=== PATIENT | female | born 1965 | race Asian ===

== ENCOUNTER → 2017-12-19 | Outpatient (CLI) | payer MEDICAID ==
[2017-05-09 00:24] VITALS: BP 140/91
[~2017-12-19] MED LIST: CIPRO500 M1 PO; FLOMAX0.4 MG PO; MULTIVITAMIN1 SGL PO; PERCOCET 325 MG1 TA2 PO; PREDNISONE10 MG PO; TOPCARE IBUPRO200 MG PO; TUMERIC
[2017-12-19 16:40] LABS: HEMATOCRIT 46.4 % (37.0-47.0); HEMOGLOBIN 15.6 g/dL (12.5-16.0); MEAN PLATELET VOLUME 11.4 fl (7.4-10.4); RED BLOOD COUNT 5.35 M/mm3 (4.10-5.30); RED CELL DISTRIBUTION WIDTH 13.5 % (11.5-14.5); WHITE BLOOD COUNT 6.9 K/mm3 (4.8-10.8)
[2017-12-19 17:10] LABS: ALBUMIN 3.9 g/dL (3.5-5.0); BUN/CREATININE RATIO 23.4 (6.0-26.0); CALCIUM 9.2 mg/dL (8.4-10.2); TOTAL BILIRUBIN 0.7 mg/dL (0.2-1.3); TOTAL PROTEIN 7.6 g/dL (6.3-8.2)
== END ==
LOC: LAB 15:27
PROVIDERS: Family Medicine
DX: Z00.00 Encounter for general adult medical examination without abnormal findings (principal); E66.01 Morbid (severe) obesity due to excess calories; R79.89 Other specified abnormal findings of blood chemistry

== ENCOUNTER → 2018-01-20 | Outpatient (CLI) | payer MEDICAID ==
[2017-05-09 00:24] VITALS: BP 140/91
== END ==
LOC: LAB 12:02
DX: R53.83 Other fatigue (principal)

== ENCOUNTER → 2018-06-08 | Outpatient (CLI) | payer MEDICARE, MEDICAID ==
[2017-05-09 00:24] VITALS: BP 140/91
== END ==
LOC: LAB 12:35
DX: N30.00 Acute cystitis without hematuria (principal)

== ENCOUNTER 2018-07-12 13:57 | Emergency (ER) | payer MEDICARE, MEDICAID ==
[~2018-07-12] VITALS: Ht 154.9 cm; Wt 113.6 kg
[2018-07-12 14:01] VITALS: BP 129/79
[2018-07-12] MEDS ORDERED: FEXOFENADINE H180 M1 PO (14:04)
[2018-07-12] MEDS ORDERED: LEVEMIR FLEX100 U/ML SQ (14:05)
[2018-07-12 14:30] LABS: EOS # 0.2 (0.04-0.40); EOS % 2.6 % (1.0-5.0); HEMATOCRIT 45.9 % (37.0-47.0); HEMOGLOBIN 15.5 g/dL (12.5-16.0); LYMPH# 2.1 (1.50-4.00); MEAN CELL VOLUME 88 fl (78-100); MEAN CORPUSCULAR HEMOGLOBIN 30 pg (27-31); MEAN CORPUSCULAR HGB CONC 34 g/dL (33-37); MEAN PLATELET VOLUME 10.6 fl (7.4-10.4); MONO # 0.6 (0.20-0.80); NEU # 4.4 (1.40-6.50); PLATELET COUNT 197 K/mm3 (130-400); RED BLOOD COUNT 5.21 M/mm3 (4.10-5.30); RED CELL DISTRIBUTION WIDTH 13.3 % (11.5-14.5); WHITE BLOOD COUNT 7.4 K/mm3 (4.8-10.8)
[2018-07-12 14:53] LABS: URINE COLOR YELLOW
[2018-07-12 14:54] LABS: PH-URINE 6.5 (5.0 - 8.0); URINE APPEARANCE HAZY; URINE BILIRUBIN NEGATIVE (NEGATIVE); URINE BLOOD TRACE (NEGATIVE); URINE GLUCOSE NEGATIVE (NEGATIVE); URINE KETONE NEGATIVE (NEGATIVE); URINE LEUKOCYTE ESTERASE TRACE (NEGATIVE); URINE NITRATE NEGATIVE (NEGATIVE); URINE PROTEIN(semi-quant) TRACE mg/dL (NEGATIVE); URINE UROBILINOGEN NORMAL (NORMAL)
[2018-07-12] MEDS ORDERED: MACROBID 100 M100 MG PO (15:02)
[2018-07-12] MEDS ORDERED: PYRIDIUM100 M1 PO (15:03)
== END 2018-07-12 15:30 | disposition home or self-care (01) ==
LOC: ED 13:57
PROVIDERS: Family Medicine
DX: N39.0 Urinary tract infection, site not specified (principal); E11.9 Type 2 diabetes mellitus without complications; Z79.4 Long term (current) use of insulin; Z87.442 Personal history of urinary calculi; Z86.61 Personal history of infections of the central nervous system
CPT/HCPCS: J0696

== ENCOUNTER → 2018-08-07 | Outpatient (CLI) | payer MEDICARE, MEDICAID ==
[2018-07-12 14:01] VITALS: BP 129/79
[~2018-08-07] MED LIST changes: +FEXOFENADINE H180 M1 PO; +LEVEMIR FLEX100 U/ML SQ; +MACROBID 100 M100 MG PO; +PYRIDIUM100 M1 PO
== END ==
LOC: RAD 09:52
DX: R52 Pain, unspecified (principal)

== ENCOUNTER → 2018-12-23 | Outpatient (CLI) | payer MEDICARE, MEDICAID ==
[2018-12-23 14:32] LABS: EOS # 0.2 (0.04-0.40); EOS % 3.1 % (1.0-5.0); HEMATOCRIT 46.8 % (37.0-47.0); HEMOGLOBIN 15.5 g/dL (12.5-16.0); LYMPH# 2.2 (1.50-4.00); MEAN CELL VOLUME 89 fl (78-100); MEAN CORPUSCULAR HEMOGLOBIN 29 pg (27-31); MEAN CORPUSCULAR HGB CONC 33 g/dL (33-37); MEAN PLATELET VOLUME 10.7 fl (7.4-10.4); MONO # 0.5 (0.20-0.80); NEU # 3.1 (1.40-6.50); PLATELET COUNT 191 K/mm3 (130-400); RED BLOOD COUNT 5.29 M/mm3 (4.10-5.30); RED CELL DISTRIBUTION WIDTH 13.9 % (11.5-14.5); WHITE BLOOD COUNT 6.1 K/mm3 (4.8-10.8)
[2018-12-23 15:15] LABS: ALBUMIN 3.9 g/dL (3.5-5.0); CALCIUM 9.7 mg/dL (8.4-10.2); POTASSIUM 4.1 mmol/L (3.5-5.1); TOTAL BILIRUBIN 0.9 mg/dL (0.2-1.2); TOTAL PROTEIN 7.5 g/dL (6.4-8.3)
== END ==
LOC: LAB 14:15
PROVIDERS: Family Medicine
DX: Z01.419 Encounter for gynecological examination (general) (routine) without abnormal findings (principal); E66.01 Morbid (severe) obesity due to excess calories; E11.9 Type 2 diabetes mellitus without complications; E53.9 Vitamin B deficiency, unspecified; E55.9 Vitamin D deficiency, unspecified

== ENCOUNTER 2019-01-11 14:34 | Emergency (ER) | payer MEDICARE, MEDICAID ==
[~2019-01-11] VITALS: Ht 154.9 cm; Wt 96.4 kg
[2019-01-11 15:05] LABS: EOS # 0.2 (0.04-0.40); EOS % 3.2 % (1.0-5.0); HEMATOCRIT 46.4 % (37.0-47.0); HEMOGLOBIN 15.3 g/dL (12.5-16.0); LYMPH# 2.4 (1.50-4.00); MEAN CELL VOLUME 89 fl (78-100); MEAN CORPUSCULAR HEMOGLOBIN 29 pg (27-31); MEAN CORPUSCULAR HGB CONC 33 g/dL (33-37); MEAN PLATELET VOLUME 10.8 fl (7.4-10.4); MONO # 0.5 (0.20-0.80); NEU # 3.6 (1.40-6.50); PLATELET COUNT 191 K/mm3 (130-400); RED BLOOD COUNT 5.21 M/mm3 (4.10-5.30); RED CELL DISTRIBUTION WIDTH 14.1 % (11.5-14.5); WHITE BLOOD COUNT 6.7 K/mm3 (4.8-10.8)
[2019-01-11 15:32] LABS: ALBUMIN 3.8 g/dL (3.5-5.0); CALCIUM 9.4 mg/dL (8.4-10.2); POTASSIUM 4.4 mmol/L (3.5-5.1); TOTAL BILIRUBIN 0.8 mg/dL (0.2-1.2); TOTAL PROTEIN 6.8 g/dL (6.4-8.3)
[2019-01-11 15:49] LABS: URINE COLOR YELLOW
[2019-01-11 15:50] LABS: PH-URINE 5.5 (5.0 - 8.0); URINE APPEARANCE CLOUDY; URINE BILIRUBIN NEGATIVE (NEGATIVE); URINE BLOOD 50 ery/uL (NEGATIVE); URINE GLUCOSE NEGATIVE (NEGATIVE); URINE KETONE NEGATIVE (NEGATIVE); URINE LEUKOCYTE ESTERASE 1+ (NEGATIVE); URINE MUCUS PRESENT (NOT PRESENT); URINE NITRATE NEGATIVE (NEGATIVE); URINE PROTEIN(semi-quant) TRACE mg/dL (NEGATIVE); URINE UROBILINOGEN NORMAL (NORMAL); URINE WBC >50 /hpf (0-3)
[2019-01-11] MEDS ORDERED: BACTRIM DS TAB1 EACH PO (16:08)
[2019-01-11 16:22] VITALS: BP 120/69
== END 2019-01-11 16:28 | disposition home or self-care (01) ==
LOC: ED 14:34
PROVIDERS: Nurse Practitioner
DX: S20.211A Contusion of right front wall of thorax, initial encounter (principal); N39.0 Urinary tract infection, site not specified; F17.210 Nicotine dependence, cigarettes, uncomplicated; Z86.61 Personal history of infections of the central nervous system; Z86.19 Personal history of other infectious and parasitic diseases; Z98.84 Bariatric surgery status; Z98.890 Other specified postprocedural states

== ENCOUNTER → 2019-01-20 | Outpatient (CLI) | payer MEDICARE, MEDICAID ==
[2019-01-11 16:22] VITALS: BP 120/69
[~2019-01-20] MED LIST changes: +BACTRIM DS TAB1 EACH PO
[2019-01-20 11:03] LABS: URINE APPEARANCE HAZY; URINE BILIRUBIN NEGATIVE (NEGATIVE); URINE BLOOD NEGATIVE (NEGATIVE); URINE COLOR YELLOW; URINE GLUCOSE NEGATIVE (NEGATIVE); URINE KETONE NEGATIVE (NEGATIVE); URINE LEUKOCYTE ESTERASE TRACE (NEGATIVE); URINE MUCUS PRESENT (NOT PRESENT); URINE NITRATE NEGATIVE (NEGATIVE); URINE PROTEIN(semi-quant) NEGATIVE (NEGATIVE); URINE UROBILINOGEN 1 mg/dL (NORMAL)
== END ==
LOC: RAD 09:00
PROVIDERS: Family Medicine
DX: M51.34 Other intervertebral disc degeneration, thoracic region (principal); N39.0 Urinary tract infection, site not specified; J30.1 Allergic rhinitis due to pollen; M79.7 Fibromyalgia; E11.9 Type 2 diabetes mellitus without complications; E66.01 Morbid (severe) obesity due to excess calories; M19.90 Unspecified osteoarthritis, unspecified site; R07.81 Pleurodynia; R79.89 Other specified abnormal findings of blood chemistry

== ENCOUNTER 2019-03-25 15:30 | Outpatient (RCR) | payer MEDICARE, MEDICAID | END 2019-03-25 16:00 | disposition still patient (30) | LOC: PT 15:30 | DX: M19.90 Unspecified osteoarthritis, unspecified site (principal) ==

== ENCOUNTER → 2019-10-12 | Outpatient (CLI) | payer MEDICARE, MEDICAID ==
[2019-10-12 14:19] LABS: EOS # 0.2 (0.04-0.40); EOS % 3.9 % (1.0-5.0); HEMATOCRIT 45.7 % (37.0-47.0); LYMPH# 2.6 (1.50-4.00); MEAN CELL VOLUME 88 fl (78-100); MEAN CORPUSCULAR HEMOGLOBIN 29 pg (27-31); MEAN CORPUSCULAR HGB CONC 33 g/dL (33-37); MEAN PLATELET VOLUME 10.4 fl (7.4-10.4); MONO # 0.5 (0.20-0.80); NEU # 2.9 (1.40-6.50); PLATELET COUNT 211 K/mm3 (130-400); RED BLOOD COUNT 5.19 M/mm3 (4.10-5.30); RED CELL DISTRIBUTION WIDTH 13.9 % (11.5-14.5); WHITE BLOOD COUNT 6.2 K/mm3 (4.8-10.8)
[2019-10-12 14:23] LABS: ALBUMIN 4.1 g/dL (3.5-5.0); POTASSIUM 4.5 mmol/L (3.5-5.1)
[2019-10-12 14:24] LABS: CALCIUM 9.5 mg/dL (8.3-10.5)
[2019-10-12 14:25] LABS: TOTAL PROTEIN 7.4 g/dL (6.4-8.3)
[2019-10-12 14:27] LABS: TOTAL BILIRUBIN 0.5 mg/dL (0.2-1.2)
== END ==
LOC: LAB 13:53
PROVIDERS: Family Medicine
DX: E11.9 Type 2 diabetes mellitus without complications (principal)

== ENCOUNTER 2019-11-01 08:30 | Outpatient (RCR) | payer MEDICARE, MEDICAID | END 2020-01-17 | disposition still patient (30) | LOC: PT | DX: R42 Dizziness and giddiness (principal) ==

== ENCOUNTER → 2020-10-17 | Outpatient (CLI) | payer MEDICARE, MEDICAID ==
[2020-10-17 11:14] LABS: HEMATOCRIT 48.6 % (37.0-47.0); HEMOGLOBIN 15.9 g/dL (12.5-16.0); MEAN CELL VOLUME 89 fl (78-100); MEAN CORPUSCULAR HEMOGLOBIN 29 pg (27-31); MEAN CORPUSCULAR HGB CONC 33 g/dL (33-37); MEAN PLATELET VOLUME 10.3 fl (7.4-10.4); PLATELET COUNT 183 K/mm3 (130-400); RED BLOOD COUNT 5.47 M/mm3 (4.10-5.30); RED CELL DISTRIBUTION WIDTH 13.4 % (11.5-14.5); WHITE BLOOD COUNT 5.4 K/mm3 (4.8-10.8)
[2020-10-17 11:15] LABS: EOS # 0.2 (0.04-0.40); MONO # 0.4 (0.20-0.80); NEU # 2.7 (1.40-6.50)
[2020-10-17 11:16] LABS: CALCIUM 9.1 mg/dL (8.3-10.5)
[2020-10-17 11:18] LABS: TOTAL PROTEIN 7.4 g/dL (6.4-8.3)
== END ==
LOC: LAB 10:47
PROVIDERS: Family Medicine
DX: Z00.00 Encounter for general adult medical examination without abnormal findings (principal); E11.9 Type 2 diabetes mellitus without complications; E78.5 Hyperlipidemia, unspecified

== ENCOUNTER 2020-10-25 10:04 | Outpatient (RCR) | payer MEDICARE, MEDICAID | END 2020-10-25 17:00 | disposition home or self-care (01) | LOC: PT 10:04 | DX: H81.10 Benign paroxysmal vertigo, unspecified ear (principal) ==

== ENCOUNTER → 2020-11-22 | Outpatient (CLI) | payer MEDICARE, MEDICAID | LOC: RAD 15:23 | DX: R07.81 Pleurodynia (principal) ==

== ENCOUNTER → 2020-12-26 | Outpatient (CLI) | payer MEDICARE, MEDICAID | LOC: RAD 16:03 | DX: M47.816 Spondylosis without myelopathy or radiculopathy, lumbar region (principal); M41.86 Other forms of scoliosis, lumbar region ==

== ENCOUNTER → 2021-10-10 | Outpatient (CLI) | payer MEDICARE, MEDICAID ==
[2021-10-10 15:11] LABS: BASO # 0.02 K/mm3 (0.02-0.10); EOS % 3.5 % (1.0-5.0); HEMATOCRIT 46.1 % (37.0-47.0); HEMOGLOBIN 15.4 g/dL (12.5-16.0); LYMPH# 2.19 K/mm3 (1.50-4.00); MEAN CELL VOLUME 89 fl (78-100); MEAN CORPUSCULAR HEMOGLOBIN 30 pg (27-31); MEAN CORPUSCULAR HGB CONC 33 g/dL (33-37); MEAN PLATELET VOLUME 10.4 fl (7.4-10.4); NEU # 2.77 K/mm3 (1.40-6.50); PLATELET COUNT 218 K/mm3 (130-400); RED BLOOD COUNT 5.21 M/mm3 (4.10-5.30); RED CELL DISTRIBUTION WIDTH 13.3 % (11.5-14.5); WHITE BLOOD COUNT 5.7 K/mm3 (4.8-10.8)
[2021-10-10 15:17] LABS: POTASSIUM 4.3 mmol/L (3.5-5.1)
[2021-10-10 15:18] LABS: ALBUMIN 4.1 g/dL (3.5-5.0)
[2021-10-10 15:19] LABS: CALCIUM 9.6 mg/dL (8.3-10.5)
[2021-10-10 15:20] LABS: TOTAL PROTEIN 7.8 g/dL (6.4-8.3)
[2021-10-10 15:22] LABS: TOTAL BILIRUBIN 0.7 mg/dL (0.2-1.2)
== END ==
LOC: LAB 13:54
PROVIDERS: Family Medicine
DX: Z00.00 Encounter for general adult medical examination without abnormal findings (principal); J30.1 Allergic rhinitis due to pollen; E11.9 Type 2 diabetes mellitus without complications; E78.5 Hyperlipidemia, unspecified; M79.7 Fibromyalgia; E66.01 Morbid (severe) obesity due to excess calories; M19.90 Unspecified osteoarthritis, unspecified site; M06.89 Other specified rheumatoid arthritis, multiple sites; E55.9 Vitamin D deficiency, unspecified; M79.671 Pain in right foot; M25.551 Pain in right hip

== ENCOUNTER → 2022-03-19 | Outpatient (CLI) | payer MEDICARE, MEDICAID ==
[2022-03-19 15:51] LABS: BASO # 0.03 K/mm3 (0.02-0.10); EOS # 0.13 K/mm3 (0.04-0.40); EOS % 2.1 % (1.0-5.0); HEMATOCRIT 47.4 % (37.0-47.0); HEMOGLOBIN 15.7 g/dL (12.5-16.0); LYMPH# 1.61 K/mm3 (1.50-4.00); MEAN CELL VOLUME 88 fl (78-100); MEAN CORPUSCULAR HEMOGLOBIN 29 pg (27-31); MEAN CORPUSCULAR HGB CONC 33 g/dL (33-37); MEAN PLATELET VOLUME 9.8 fl (7.4-10.4); MONO # 0.36 K/mm3 (0.20-0.80); NEU # 4.09 K/mm3 (1.40-6.50); PLATELET COUNT 208 K/mm3 (130-400); RED CELL DISTRIBUTION WIDTH 12.8 % (11.5-14.5); WHITE BLOOD COUNT 6.2 K/mm3 (4.8-10.8)
[2022-03-19 16:13] LABS: ALBUMIN 4.1 g/dL (3.5-5.0); POTASSIUM 4.3 mmol/L (3.5-5.1)
[2022-03-19 16:14] LABS: CALCIUM 9.4 mg/dL (8.3-10.5)
[2022-03-19 16:15] LABS: TOTAL PROTEIN 7.7 g/dL (6.4-8.3)
[2022-03-19 16:17] LABS: TOTAL BILIRUBIN 0.7 mg/dL (0.2-1.2)
== END ==
LOC: LAB 15:32
PROVIDERS: Family Medicine
DX: Z00.00 Encounter for general adult medical examination without abnormal findings (principal); E78.5 Hyperlipidemia, unspecified; E11.9 Type 2 diabetes mellitus without complications; E55.9 Vitamin D deficiency, unspecified; J30.1 Allergic rhinitis due to pollen; E66.01 Morbid (severe) obesity due to excess calories; M19.90 Unspecified osteoarthritis, unspecified site; M06.89 Other specified rheumatoid arthritis, multiple sites; R94.5 Abnormal results of liver function studies

== ENCOUNTER → 2022-04-05 | Outpatient (CLI) | payer MEDICARE, MEDICAID | LOC: CARDREHAB 09:16 | DX: R07.9 Chest pain, unspecified (principal) | CPT/HCPCS: A9500 ==

== ENCOUNTER → 2022-10-15 | Outpatient (CLI) | payer MEDICARE, MEDICAID ==
[2022-10-15 17:08] LABS: BASO # 0.02 K/mm3 (0.02-0.10); EOS # 0.04 K/mm3 (0.04-0.40); EOS % 0.3 % (1.0-5.0); HEMATOCRIT 46.3 % (37.0-47.0); HEMOGLOBIN 15.3 g/dL (12.5-16.0); LYMPH# 2.02 K/mm3 (1.50-4.00); MEAN CELL VOLUME 88 fl (78-100); MEAN CORPUSCULAR HEMOGLOBIN 29 pg (27-31); MEAN CORPUSCULAR HGB CONC 33 g/dL (33-37); MEAN PLATELET VOLUME 10.3 fl (7.4-10.4); MONO # 0.95 K/mm3 (0.20-0.80); NEU # 12.86 K/mm3 (1.40-6.50); PLATELET COUNT 192 K/mm3 (130-400); RED BLOOD COUNT 5.27 M/mm3 (4.10-5.30); RED CELL DISTRIBUTION WIDTH 13.4 % (11.5-14.5); WHITE BLOOD COUNT 15.9 K/mm3 (4.8-10.8)
[2022-10-15 17:26] LABS: POTASSIUM 3.9 mmol/L (3.5-5.1)
[2022-10-15 17:27] LABS: CALCIUM 9.6 mg/dL (8.3-10.5)
[2022-10-15 17:29] LABS: TOTAL PROTEIN 7.2 g/dL (6.4-8.3)
[2022-10-15 17:30] LABS: TOTAL BILIRUBIN 0.5 mg/dL (0.2-1.2)
[2022-10-21 09:08] LABS: VITAMIN A 29.3 mcg/dL (())
[2022-10-23 07:25] LABS: VITAMIN B1 225 nmol/L (70-180)
== END ==
LOC: LAB 16:39
PROVIDERS: Family Medicine
DX: J30.1 Allergic rhinitis due to pollen (principal); D50.9 Iron deficiency anemia, unspecified; E11.9 Type 2 diabetes mellitus without complications; R60.9 Edema, unspecified; M79.7 Fibromyalgia; R94.5 Abnormal results of liver function studies; E66.01 Morbid (severe) obesity due to excess calories; M19.90 Unspecified osteoarthritis, unspecified site; M06.89 Other specified rheumatoid arthritis, multiple sites; M25.551 Pain in right hip; E55.9 Vitamin D deficiency, unspecified; H66.92 Otitis media, unspecified, left ear

== ENCOUNTER → 2023-06-17 | Outpatient (CLI) | payer MEDICARE, MEDICAID ==
[2023-06-17 14:55] LABS: BASO # 0.01 K/mm3 (0.02-0.10); EOS # 0.13 K/mm3 (0.04-0.40); EOS % 2.4 % (1.0-5.0); HEMATOCRIT 47.9 % (37.0-47.0); HEMOGLOBIN 15.7 g/dL (12.5-16.0); LYMPH# 2.37 K/mm3 (1.50-4.00); MEAN CELL VOLUME 88 fl (78-100); MEAN CORPUSCULAR HEMOGLOBIN 29 pg (27-31); MEAN CORPUSCULAR HGB CONC 33 g/dL (33-37); MONO # 0.41 K/mm3 (0.20-0.80); NEU # 2.44 K/mm3 (1.40-6.50); PLATELET COUNT 207 K/mm3 (130-400); RED BLOOD COUNT 5.44 M/mm3 (4.10-5.30); WHITE BLOOD COUNT 5.4 K/mm3 (4.8-10.8)
[2023-06-17 15:01] LABS: ALBUMIN 4.1 g/dL (3.5-5.0)
[2023-06-17 15:02] LABS: CALCIUM 9.2 mg/dL (8.3-10.5)
[2023-06-17 15:03] LABS: TOTAL PROTEIN 7.4 g/dL (6.4-8.3)
[2023-06-17 15:05] LABS: TOTAL BILIRUBIN 1.1 mg/dL (0.2-1.2)
[2023-06-22 08:09] LABS: VITAMIN B1 175.2 nmol/L (())
== END ==
LOC: LAB 14:25
PROVIDERS: Family Medicine
DX: Z00.00 Encounter for general adult medical examination without abnormal findings (principal); E78.5 Hyperlipidemia, unspecified; J30.1 Allergic rhinitis due to pollen; E11.9 Type 2 diabetes mellitus without complications; M79.7 Fibromyalgia; R94.5 Abnormal results of liver function studies; E66.01 Morbid (severe) obesity due to excess calories; M19.90 Unspecified osteoarthritis, unspecified site; M06.89 Other specified rheumatoid arthritis, multiple sites; E53.9 Vitamin B deficiency, unspecified